=== PATIENT | female | born 1955 | race American Indian/Alaskan Native ===

== ENCOUNTER 2016-08-14 08:07 | Outpatient (CLI) | payer BC ==
--- NOTE | 2016-08-14 09:25 | Mammography Report ---
Screening unilateral mammogram: History: Left mastectomy. Routine views of the right breast are compared to prior exam in 2015. This is intermediate fibroglandular density. No focal mass, architectural distortion, calcifications, nor interval change identified. Impression: Stable right mammogram. Recommendation: Annual mammogram followup. BI-RADS CATEGORY: 1 = Negative ACR BI-RADS MAMMOGRAPHIC CODES: 0 = Needs additional imaging evaluation; 1 = Negative; 2 = Benign; 3 = Probably benign; 4 = Suspicious; 5 = Malignant; 6 = Known biopsy-proven malignancy COMMENT: 1. Dense breast tissue, i.e., adenosis, fibrocystic changes, etc., may obscure an underlying neoplasm. 2. Approximately 10% of cancers are not detected with mammography. 3. A negative mammography report should not delay biopsy if a clinically suspicious mass is present.
== END 2016-08-14 08:08 | disposition home or self-care (01) ==
LOC: SPVWC 08:07
DX: Z12.31 Encounter for screening mammogram for malignant neoplasm of breast (principal); Z90.12 Acquired absence of left breast and nipple
CPT/HCPCS: G0202-52